=== PATIENT | female | born 1995 | race Caucasian/White ===

== ENCOUNTER 2018-01-28 20:39 | Emergency (ER) | payer OTHER ==
[~2018-01-28] VITALS: Ht 157.5 cm; Wt 69.0 kg
[2018-01-28 20:41] VITALS: TEMP 36.6; Ht 157.5 cm; Wt 69.0 kg
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
[2018-01-28 21:40] LABS: BASO % 0.3 %; BASO ABS # 0.02 K/uL (0-0.2); EOS % 1.2 %; EOS ABS # 0.08 K/uL (0-0.5); HEMATOCRIT 38.9 % (37-47); HEMOGLOBIN 12.8 g/dL (12.0-16.0); IG# 0.01 K/uL (0.00-0.02); LYMPH % 31.2 %; LYMPH ABS # 2.02 K/uL (1.2-3.4); MEAN CELL VOLUME 83.5 fL (80-100); MEAN CORPUSCULAR HEMOGLOBIN 27.5 pg (25-34); MEAN CORPUSCULAR HGB CONC 32.9 g/dl (32-36); MEAN PLATELET VOLUME 9.9 fL (7.4-10.4); MONO % 7.3 %; MONO ABS # 0.47 K/uL (0.11-0.59); NEUT % 59.8 %; NEUT ABS # 3.88 K/uL (1.4-6.5); PLATELET COUNT 256 K/uL (130-400); RED CELL DISTRIBUTION WIDTH CV 13.1 % (11.5-14.5); RED CELL DISTRIBUTION WIDTH SD 39.4 fL (36.4-46.3); WHITE BLOOD COUNT 6.48 K/uL (4.8-10.8)
[2018-01-28 22:05] LABS: ALBUMIN 3.3 gm/dl (3.4-5.0); ALT/SGPT 21 U/L (12-78); AST/SGOT 11 U/L (15-37); BLOOD UREA NITROGEN 10 mg/dl (7-18); CALCIUM 8.6 mg/dl (8.5-10.1); CARBON DIOXIDE 26 mmol/L (21-32); CREATININE 0.94 mg/dl (0.60-1.20); GLUCOSE 261 mg/dl (70-99); POTASSIUM 3.6 mmol/L (3.5-5.1); SODIUM 134 mmol/L (136-145)
[2018-01-28 22:15] LABS: ALKALINE PHOSPHATASE 76 U/L (45-117); TOTAL PROTEIN 7.5 gm/dl (6.4-8.2)
[2018-01-28] MEDS ORDERED: INSULIN PROTOCOL GOAL RANGE STA (22:32)
[2018-01-28] MEDS ORDERED: LANTUS PER UNIT CHARGE SC STA (22:32)
[2018-01-28] MEDS ORDERED: DEXTROSE 50% 50 ML SYR IV PRN (22:45)
[2018-01-28] MEDS ORDERED: GLUCOSE 40% GEL 15 GM TUBE PO PRN (22:45)
[2018-01-28] MEDS ORDERED: GLUCOSE 10 TABS/TUBE PO PRN (22:45)
[2018-01-28] MEDS ORDERED: GLUCAGON FOR INJ 1 MG VIAL SQ PRN (22:45)
[2018-01-28] MEDS: NovoLOG PER UNIT CHARGE SC SCH (23:02)
[2018-01-28] MEDS ORDERED: INSDGI SC (23:08)
[2018-01-28] MEDS ORDERED: INSU100I SC (23:08)
[2018-01-29 06:24] LABS: HEMOGLOBIN A1C 9.1 % (4.5-5.6)
[2018-01-29] MEDS: NovoLOG PER UNIT CHARGE SC SCH ×2 (08:40→11:43)
[2018-01-29 13:34] VITALS: BP 139/79; PULSE 85; O2SAT 97
--- NOTE | 2018-01-29 15:42 | EMERGENCY ROOM VISIT NOTE ---
ED Visit Note First contact with patient: 07:16 I received this patient from Dr. Jeffries at the change of shift, pending transportation to the [facility] for inpatient psychiatric management. Ambulance transportation was originally arranged however this would not covered by the patient's insurance. She refused ambulance transport and the constable was contacted. The patient waited constable transport until approximately 12:00 and was transferred to the [facility]. Please refer to previous documentation for further details of the visit.
== END 2018-01-29 13:20 ==
LOC: C.EDB 20:41 → C.EDA 01-29 13:20
DX: F39 Unspecified mood [affective] disorder (principal); E10.9 Type 1 diabetes mellitus without complications